=== PATIENT | female | born 1960 | race Caucasian/White ===

== ENCOUNTER 2020-05-02 05:03 | Emergency (ER) | payer OTHER ==
[~2020-05-02] VITALS: Ht 160 cm; Wt 97.6 kg
[2020-05-02 05:06] VITALS: BP 170/79
[2020-05-02] MEDS ORDERED: LIDOcaine 1% W/epiNEPHrine 1:200,000 10ml vial IJ ONE (06:10)
== END 2020-05-02 07:12 | disposition home or self-care (01) ==
LOC: ER 05:04
DX: L72.3 Sebaceous cyst (principal); M54.5 Low back pain; E11.9 Type 2 diabetes mellitus without complications; Z72.89 Other problems related to lifestyle
CPT/HCPCS: 10060; 99282